=== PATIENT | male | born 1940 | race Caucasian/White ===

== ENCOUNTER 2016-10-10 23:58 | Inpatient (IN) | payer MEDICARE, MEDICAID ==
[~2016-10-10] VITALS: Ht 177.8 cm; Wt 91.2 kg
[2016-10-11] VITALS (131 sets, daily range): BP systolic 49–221; RESP 18–52; TEMP 99.2–100.6; Ht 177.8 cm; Wt 91.2 kg
[2016-10-11] MEDS ORDERED: NEB-ALBUTEROL 2.5 MG/3 ML INH ONE (00:25)
[2016-10-11] MEDS ORDERED: PIPER/TAZO 3.375 GM PYXIS ONE (00:31)
[2016-10-11] MEDS ORDERED: SODIUM CHLORIDE 0.9% 100 ML IV ONE (00:32)
[2016-10-11] MEDS ORDERED: VANCOMYCIN 2,000 MG in SODIUM CHLORIDE 0.9% 500 ML IV ONE (00:40)
[2016-10-11] MEDS ORDERED: SODIUM CHLORIDE 0.9% 1,000 ML ONE ×2 (00:47→02:09)
[2016-10-11] MEDS ORDERED: DUONEB INH ONE (01:07)
[2016-10-11] MEDS ORDERED: PHARMACY TO DOSE VANCOMYCIN IV SCH ×2 (01:10)
[2016-10-11] MEDS ORDERED: SODIUM CHLORIDE 0.9% 1,000 ML IV SCH (01:10)
[2016-10-11] MEDS ORDERED: ONDANSETRON 4 MG VIAL IV PUSH PRN (01:10)
[2016-10-11] MEDS ORDERED: PHARMACY TO DOSE ZOSYN IV SCH (01:10)
[2016-10-11] MEDS ORDERED: PHARMACY TO DOSE LEVAQUIN IV SCH (01:10)
[2016-10-11] MEDS ORDERED: SALINE FLUSH 10 ML FLUSH PRN ×2 (01:10→09:15)
[2016-10-11] MEDS: SALINE FLUSH 10 ML FLUSH SCH ×4 (01:10→20:00)
[2016-10-11] MEDS ORDERED: ACETAMINOPHEN 325 MG TAB PO PRN (01:10)
[2016-10-11] MEDS ORDERED: LEVOFLOXACIN 250 MG/50 ML 50 ML IV ONE (01:40)
[2016-10-11] MEDS ORDERED: Furosemide 40 MG/4 ML VIAL IV ONE (03:40)
[2016-10-11] MEDS ORDERED: Furosemide 40 MG/4 ML VIAL ONE (03:53)
[2016-10-11] MEDS: SODIUM CHLORIDE 0.9% FLUSH BAG 500 ML IV SCH ×2 (03:56→17:32)
[2016-10-11] MEDS: LORAZEPAM 2 MG/ML VIAL IV PRN (04:23)
[2016-10-11] MEDS ORDERED: LORAZEPAM 2 MG/ML VIAL IV ONE (04:35)
[2016-10-11] MEDS ORDERED: PIPERACIL/TAZO 4.5GM/100ML 100 ML IV SCH (06:00)
[2016-10-11] MEDS: LEVOTHYROXINE 0.075 MG TAB PO SCH (06:43)
[2016-10-11] MEDS ORDERED: MISSING DOSE XX ONE ×5 (06:50→22:45)
[2016-10-11] MEDS ORDERED: ETOMIDATE 2 MG/ML VIAL IV ONE (08:15)
[2016-10-11] MEDS ORDERED: ROCURONIUM 50 MG VIAL IV ONE (08:15)
[2016-10-11] MEDS ORDERED: PROPOFOL 100 ML 100 ML IV ONE (08:35)
[2016-10-11] MEDS ORDERED: ISOSORBIDE MONO 30 MG TAB PO SCH (09:00)
[2016-10-11] MEDS ORDERED: ASPIRIN EC 81 MG TAB PO SCH (09:00)
[2016-10-11] MEDS ORDERED: SODIUM CHLORIDE 0.9% 1,000 ML IV ONE ×2 (09:15)
[2016-10-11] MEDS ORDERED: PHARMACY TO DOSE CEFEPIME IV SCH (09:15)
[2016-10-11] MEDS ORDERED: LACT RINGERS 1,000 ML IV SCH (09:40)
[2016-10-11] MEDS ORDERED: NOREPINEPHRINE 1 MG/ML 4 ML VIAL IV ONE (10:28)
[2016-10-11] MEDS: NOREPINEPHRINE 16 MG in DEXTROSE 5% 234 ML IV SCH ×2 (10:35→23:26)
[2016-10-11] MEDS: POTASSIUM CHLORIDE PREMIX 50 ML IV SCH ×4 (10:56→16:27)
[2016-10-11] MEDS: MAGNESIUM SULF 1 GM/100 ML 100 ML IV SCH ×4 (10:56→16:26)
[2016-10-11] MEDS: FAMOTIDINE 20 MG INJ IV SCH ×2 (11:07→20:28)
[2016-10-11] MEDS: CEFEPIME 2000 MG/100 ML D5W 100 ML IV SCH ×2 (11:08→20:28)
[2016-10-11] MEDS: VASOPRESSIN 40 UNITS in SODIUM CHLORIDE 0.9% 38 ML IV SCH ×2 (12:44→20:26)
[2016-10-11] MEDS ORDERED: LACT RINGERS 1,000 ML IV ONE ×2 (12:55→14:00)
[2016-10-11] MEDS: CHLORHEXIDINE 0.12% ORAL CARE FOR VENT PATIENTS 15 ML SWAB SCH (13:23)
[2016-10-11] MEDS ORDERED: ALBUMIN HUMAN 25GM (25%) 100 ML IV ONE ×2 (14:30)
[2016-10-11] MEDS ORDERED: VANCOMYCIN 1,250 MG in SODIUM CHLORIDE 0.9% 250 ML IV SCH (15:00)
[2016-10-11] MEDS: ENOXAPARIN 40 MG/0.4 ML SYR SUBQ SCH (16:35)
[2016-10-11] MEDS ORDERED: SOLU-CORTEF 100 MG/2 ML IV ONE (17:30)
[2016-10-11] MEDS ORDERED: DOCUSATE SOD 100 MG CAP PO SCH (21:00)
[2016-10-11] MEDS ORDERED: OLANZAPINE 5 MG TAB PO SCH (21:00)
[2016-10-11] MEDS ORDERED: SOD BICARB 8.4% SYR 50 ML IV ONE ×2 (21:40→22:05)
[2016-10-11] MEDS: FENTANYL 500 MCG/50 ML BAG IV SCH (21:42)
[2016-10-11] MEDS: SOLU-CORTEF 100 MG/2 ML IV SCH (22:01)
[2016-10-12] VITALS (61 sets, daily range): BP systolic 85–132; RESP 21–36; TEMP 97.1–99.8
[2016-10-12] MEDS: PROPOFOL 100 ML 100 ML IV SCH ×2 (00:34→06:31)
[2016-10-12] MEDS: CHLORHEXIDINE 0.12% ORAL CARE FOR VENT PATIENTS 15 ML SWAB SCH ×2 (00:35→11:54)
[2016-10-12] MEDS ORDERED: MISSING DOSE XX ONE ×2 (05:00→07:35)
[2016-10-12] MEDS ORDERED: CALCIUM GLUCONATE 2,000 MG in SODIUM CHLORIDE 0.9% 100 ML IV ONE ×2 (05:45→05:50)
[2016-10-12] MEDS ORDERED: ALBUMIN 12.5 GM/50 ML (25%) IV ONE (05:45)
[2016-10-12] MEDS ORDERED: SOD BICARB 8.4% SYR 50 ML ONE (05:49)
[2016-10-12] MEDS ORDERED: SOD BICARB 8.4% SYR 50 ML IV ONE (05:50)
[2016-10-12] MEDS ORDERED: DEXTROSE 50% SYRINGE 50 ML IV ONE (05:50)
[2016-10-12] MEDS ORDERED: ALBUMIN HUMAN 25GM (25%) 100 ML IV ONE (05:50)
[2016-10-12] MEDS ORDERED: humuLIN REG INSULIN IV PUSH ONE (05:50)
[2016-10-12] MEDS ORDERED: humuLIN REG INSULIN ONE (05:52)
[2016-10-12] MEDS ORDERED: DEXTROSE 50% 50 ML ONE (05:53)
[2016-10-12] MEDS ORDERED: SODIUM CHLORIDE 0.9% FLUSH BAG 500 ML IV SCH (06:00)
[2016-10-12] MEDS: FENTANYL 500 MCG/50 ML BAG IV SCH (06:09)
[2016-10-12] MEDS: SOLU-CORTEF 100 MG/2 ML IV SCH ×2 (06:22→11:54)
[2016-10-12] MEDS: LEVOTHYROXINE 0.075 MG TAB PO SCH (07:00)
[2016-10-12] MEDS ORDERED: VANCOMYCIN 1,250 MG in SODIUM CHLORIDE 0.9% 250 ML IV ONE (07:05)
[2016-10-12] MEDS: CEFEPIME 2000 MG/100 ML D5W 100 ML IV SCH (08:00)
[2016-10-12] MEDS: SALINE FLUSH 10 ML FLUSH SCH ×2 (08:00)
[2016-10-12] MEDS: FAMOTIDINE 20 MG INJ IV SCH (08:00)
[2016-10-12] MEDS: ENOXAPARIN 40 MG/0.4 ML SYR SUBQ SCH (09:00)
[2016-10-12] MEDS ORDERED: LEVOFLOXACIN 750 MG/150 ML 150 ML IV SCH (09:00)
[2016-10-12] MEDS: VASOPRESSIN 40 UNITS in SODIUM CHLORIDE 0.9% 38 ML IV SCH (12:41)
[2016-10-12] MEDS: SODIUM CHLORIDE 0.9% FLUSH BAG 500 ML IV SCH (12:42)
[2016-10-12] MEDS: LORAZEPAM 2 MG/ML VIAL IV PRN (13:39)
[2016-10-12] MEDS: MORPHINE 2 MG/ML SYR IV PRN ×4 (13:52→16:43)
[2016-10-12] MEDS: HYOSCYAMINE SULF 0.125 MG/ML DROPS PO PRN ×2 (13:56→16:05)
[2016-10-12] MEDS ORDERED: LORAZEPAM 2 MG/ML VIAL IV PRN (16:45)
[2016-10-12] MEDS ORDERED: MORPHINE 2 MG/ML SYR IV PRN ×2 (16:45)
== END 2016-10-12 18:55 | disposition expired | DRG 871 ==
LOC: ENRESERVTM → ENRESERVDT → ER 23:58 → EMR 10-11 01:08 → ICU 10-11 02:35
PROVIDERS: ADMIT Internal Medicine; ATTEND Internal Medicine
PROC: 5A1945Z Respiratory Ventilation, 24-96 Consecutive Hours (ICD-10-PCS; principal; 2016-10-11)
PROC: 0BH17EZ Insertion of Endotracheal Airway into Trachea, Via Natural or Artificial Opening (ICD-10-PCS; 2016-10-11)
PROC: 0B9B8ZX Drainage of Left Lower Lobe Bronchus, Via Natural or Artificial Opening Endoscopic, Diagnostic (ICD-10-PCS; 2016-10-11)
PROC: 02HV33Z Insertion of Infusion Device into Superior Vena Cava, Percutaneous Approach (ICD-10-PCS; 2016-10-11)
DX: A41.9 Sepsis, unspecified organism (principal); J96.21 Acute and chronic respiratory failure with hypoxia; N17.0 Acute kidney failure with tubular necrosis; R65.21 Severe sepsis with septic shock; G92 Toxic encephalopathy; J13 Pneumonia due to Streptococcus pneumoniae; E46 Unspecified protein-calorie malnutrition; E87.2 Acidosis; E27.49 Other adrenocortical insufficiency; E03.9 Hypothyroidism, unspecified; G30.9 Alzheimer's disease, unspecified; F02.80 Dementia in other diseases classified elsewhere, unspecified severity, without behavioral disturbance, psychotic disturbance, mood disturbance, and anxiety; I25.10 Atherosclerotic heart disease of native coronary artery without angina pectoris; Z95.1 Presence of aortocoronary bypass graft; Z66 Do not resuscitate; G20 Parkinson's disease; K21.9 Gastro-esophageal reflux disease without esophagitis; Z85.46 Personal history of malignant neoplasm of prostate; Z79.82 Long term (current) use of aspirin; Z78.1 Physical restraint status; Z51.5 Encounter for palliative care; E87.5 Hyperkalemia; Z68.29 Body mass index [BMI] 29.0-29.9, adult; E83.42 Hypomagnesemia; E83.39 Other disorders of phosphorus metabolism; Z79.52 Long term (current) use of systemic steroids; Y95 Nosocomial condition; G70.00 Myasthenia gravis without (acute) exacerbation
CPT/HCPCS: 31622; 36415; 36558; 36600; 51702; 71010; 80048; 80053; 80202; 81001; 82553; 82803; 82947; 83605; 83735; 84100; 84484; 85007; 85025; 85027; 85610; 87040; 87071; 87077; 87088; 87102; 87116; 87186; 87205; 87206; 87278; 87299; 87804; 88108; 89051; 93005; 93306; 94002; 94003; 94640; 94660; 94799; 96361; 96365; 96375; 99222; 99233; 99291